=== PATIENT | female | born 1990 | race African-American/Black ===

== ENCOUNTER → 2024-11-25 14:12 | Outpatient (CLI) | payer OTHER, SELFPAY ==
--- NOTE | 2024-11-25 14:15 | DI.US.S_ITS ---
PROCEDURE: US PELVIC COMPLETE INDICATIONS: PELVIC AND PERINEAL PAIN TECHNIQUE: Real-time scanning was performed of the pelvic organs, with image documentation. Additional endovaginal scanning was necessary due to incomplete visualization of the adnexal and endometrial structures by transabdominal scanning. COMPARISON: None. FINDINGS: Uterus: Uterus is anteverted and normal in size at 11.7 x 4.4 x 6.2 cm. The myometrium is homogeneous. The endometrium measures 8 mm combined thickness. Ovaries: The right ovary measures 2.9 x 2.5 x 2.8 cm, with a calculated ovarian volume of 10 cc. The left ovary measures 2.1 x 2.1 x 2.8 cm, with a calculated ovarian volume of 6.3 cc. The ovaries have a normal sonographic appearance. Greater than 12 follicles can be seen in each ovary. No adnexal masses are seen. Other: No pathologic free abdominal or pelvic fluid. IMPRESSION: Greater than 12 follicles per ovary, which can be seen in the clinical setting of PCOS. We strive to produce accurate, complete, and clear reports of imaging services. To assist us in improving patient care, this report was composed using standard report templates and voice recognition software. Therefore, it may contain abnormal punctuation, insertions and/or omissions. Occasional wrong-word or sound-alike substitutions may occur. Though we review the report and make efforts to correct it, we do recommend that the report be read carefully in proper context to recognize any text inaccuracies. Dictated by: Sumit Gonzalez M.D. on 11/25/2024 at 16:17 Approved by: Sumit Gonzalez M.D. on 11/25/2024 at 16:18
== END ==
PROVIDERS: Referring Provider Physician Assistant; Visit Provider Physician Assistant
DX: R10.2 Pelvic and perineal pain (principal)
CPT/HCPCS: 76830; 76856